=== PATIENT | female | born 2000 | race African-American/Black ===

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

== ENCOUNTER 2019-11-21 10:03 | Inpatient (IN) | payer MEDICAID ==
--- NOTE | 2019-11-21 10:48 | ER Document Report ---
Entered by HILTON BURNS SCRIBE 11/21/19 1027 Acting as scribe for:SOLA GUTIERREZ MD ED GI/ - General Chief Complaint: Vomiting Stated Complaint: VOMITING,DIARRHEA,MUSCLE PAIN Time Seen by Provider: 11/21/19 10:13 Mode of Arrival: Ambulatory Information source: Patient Notes: This 19-year-old female patient presents to the emergency department today with complaints of vomiting consistently for the last three weeks with an associated 30 pound weight loss. She reports that early on about 3 weeks ago she had diarrhea but she has not had any recently. She states that she also feels like she "cannot get enough air". Patient states her last menstrual period was earlier this month and she is G1, P1. TRAVEL OUTSIDE OF THE [place] IN LAST 30 DAYS: No - Related Data Allergies/Adverse Reactions: No Known Allergies Allergy (Verified 11/03/17 11:04) Past Medical History - General Information source: Patient - Social History Smoking Status: Never Smoker Cigarette use (# per day): No Frequency of alcohol use: None Drug Abuse: None Lives with: Family Family History: Reviewed & Not Pertinent - Medical History Medical History: Negative Surgical Hx: Negative Review of Systems - Review of Systems Constitutional: No symptoms reported EENT: No symptoms reported Cardiovascular: No symptoms reported Respiratory: No symptoms reported Gastrointestinal: See HPI, Nausea, Vomiting Genitourinary: No symptoms reported Female Genitourinary: No symptoms reported Musculoskeletal: No symptoms reported Skin: No symptoms reported Hematologic/Lymphatic: No symptoms reported Neurological/Psychological: No symptoms reported -: Yes All other systems reviewed and negative Physical Exam - Vital signs Vitals: Temp Pulse Resp BP Pulse Ox 98.5 F 162 H 30 H 129/75 H 98 11/21/19 10:20 11/21/19 10:20 11/21/19 10:20 11/21/19 10:20 11/21/19 10:20 - Notes Notes: Physical Exam: General: Alert, ketone odor on breath. HEENT: Normocephalic. Atraumatic. PERRL. Extraocular movements intact. Oropharynx clear. Neck: Supple. Non-tender. No thyroid enlargement. Respiratory: No respiratory distress. Clear and equal breath sounds bilaterally. Cardiovascular: Tachycardic at 160, regular rhythm. Abdominal: Normal Inspection. Non-tender. No distension. Normal Bowel Sounds. Back: No gross abnormalities. Extremities: Moves all four extremities. Upper extremities: Normal inspection. Normal ROM. Lower extremities: Normal inspection. No edema. Normal ROM. Neurological: Normal cognition. AAOx4. Normal speech. Psychological: Normal affect. Normal Mood. Skin: Warm. Dry. Normal color. Course - Re-evaluation Re-evalutation: 11/21/19 13:42 The patient was evaluated during the global COVID-19 pandemic and that diagnosis was suspected/considered upon their initial presentation. Their evaluation, treatment and testing was consistent with current guidelines for patients who present with complaints or symptoms that may be related to COVID-19. - Vital Signs Vital signs: Temp Pulse Resp BP Pulse Ox 98.4 F 98 16 115/62 100 11/23/19 11:42 11/23/19 14:00 11/23/19 11:42 11/23/19 11:42 11/23/19 11:42 - Laboratory Result Diagrams: 11/22/19 06:14 11/22/19 06:14 Laboratory results interpreted by me: 11/21/19 11/21/19 11/21/19 11:19 11:19 11:19 RDW 11.2 L VBG pH VBG pCO2 VBG HCO3 Sodium 134.1 L Carbon Dioxide 15 L Creatinine 0.41 L ALT 49 H TSH Free T4 Free T3 pg/mL Serum HCG, Qual POSITIVE H Beta HCG, Quant Urine Protein Urine Ketones Urine Blood Ur Leukocyte Esterase 11/21/19 11/21/19 11/21/19 11:19 11:19 11:19 RDW VBG pH VBG pCO2 VBG HCO3 Sodium Carbon Dioxide Creatinine ALT TSH < 0.01 L Free T4 5.17 H Free T3 pg/mL 14.00 H Serum HCG, Qual Beta HCG, Quant 880570.00 H Urine Protein 100 H Urine Ketones 80 H Urine Blood SMALL H Ur Leukocyte Esterase TRACE H 11/21/19 12:12 RDW VBG pH 7.28 L VBG pCO2 32.6 L VBG HCO3 15.1 L Sodium Carbon Dioxide Creatinine ALT TSH Free T4 Free T3 pg/mL Serum HCG, Qual Beta HCG, Quant Urine Protein Urine Ketones Urine Blood Ur Leukocyte Esterase - EKG Interpretation by Tx EKG shows normal: Sinus rhythm, [place], Intervals, QRS Complexes, ST-T Waves Rate: Tachycardia - 128 P Waves: LAE When compared to previous EKG there are: Previous EKG unavailable - Consults Nadya Bright [employer] Time consulted: 13:20 Consulted provider: will come to ER Critical Care Note - Critical Care Note Total time excluding time spent on procedures (mins): 30 Comments: At least 30 minutes spent evaluating the patient reviewing lab work and formulating a diagnosis and plan, then time spent explaining this to the patient and discussing the patient with the hospitalist service to get the admission to the hospital done. Discharge - Discharge Clinical Impression: Hyperthyroidism complicating in first trimester, Hyperemesis gravidarum, Weight loss, abnormal, Metabolic acidosis, Tachycardia Condition: Stable Disposition: ADMITTED INPATIENT Admitting Provider: Kaya (Hospitalist) - Nadya Bright will be seeing the patient and writing orders. Unit Admitted: Telemetry I personally performed the services described in the documentation, reviewed and edited the documentation which was dictated to the scribe in my presence, and it accurately records my words and actions.
[2019-11-21] MEDS ORDERED: RINGERS SOLUTION,LACTATED 1,000 ML IV ONE (11:07)
[2019-11-21 11:40] LABS: ABSOLUTE LYMPHOCYTES (AUTO) 1.1 10^3/uL (0.5-4.7); ABSOLUTE MONOCYTES (AUTO) 0.4 10^3/uL (0.1-1.4); ABSOLUTE NEUT (AUTO) 3.9 10^3/uL (1.7-8.2); BASOPHILS % (AUTO) 0.7 % (0-2); EOSINOPHILS % (AUTO) 0.2 % (0-6); HEMOGLOBIN 14.9 g/dL (12.0-15.5); LYMPHOCYTES % (AUTO) 20.1 % (13-45); MEAN CORPUSCULAR HEMOGLOBIN 28.4 pg (27.0-33.4); MEAN CORPUSCULAR HGB CONC 34.7 g/dL (32.0-36.0); MEAN CORPUSCULAR VOLUME 82 fl (80-97); MONOCYTES % (AUTO) 7.5 % (3-13); PLATELET COUNT 259 10^3/uL (150-450); RED BLOOD COUNT 5.26 10^6/uL (3.72-5.28); RED CELL DISTRIBUTION WIDTH 11.2 % (11.5-14.0); SEGMENTED NEUTROPHILS % (AUTO) 71.5 % (42-78); TOTAL CELLS COUNTED % (AUTO) 100 %; WHITE BLOOD COUNT 5.4 10^3/uL (4.0-10.5)
[2019-11-21 11:51] LABS: APPEARANCE,URINE SLIGHTLY-CLOUDY; BILIRUBIN,URINE NEGATIVE (NEGATIVE); COLOR,URINE YELLOW; GLUCOSE, URINE NEGATIVE (NEGATIVE); KETONES,URINE 80 mg/dL (NEGATIVE); LEUKOCYTE ESTERASE,URINE TRACE (NEGATIVE); NITRITE,URINE NEGATIVE (NEGATIVE); PROTEIN,URINE 100 mg/dL (NEGATIVE); URINE SPECIFIC GRAVITY 1.024; UROBILINOGEN,URINE NEGATIVE mg/dL (<2.0)
[2019-11-21 11:58] LABS: ALBUMIN 3.9 g/dL (3.5-5.0); ALKALINE PHOSPHATASE 77 U/L (38-126); ANION GAP 15 (5-19); ASPARTATE AMINO TRANSFERASE 35 U/L (14-36); BILIRUBIN,DIRECT 0.2 mg/dL (0.0-0.4); BILIRUBIN,TOTAL 1.3 mg/dL (0.2-1.3); BLOOD UREA NITROGEN 11 mg/dL (7-20); CALCIUM 10.2 mg/dL (8.4-10.2); CARBON DIOXIDE 15 mmol/L (22-30); CHLORIDE 104 mmol/L (98-107); CREATINE KINASE 35 U/L (30-135); GLUCOSE 95 mg/dL (75-110); POTASSIUM 4.4 mmol/L (3.6-5.0); TOTAL PROTEIN 6.7 g/dL (6.3-8.2)
[2019-11-21 12:14] LABS: FREE T4 (FREE THYROXINE) 5.17 ng/dL (0.78-2.19)
[2019-11-21 12:31] LABS: THYROID STIMULATING HORMONE < 0.01 uIU/mL (0.47-4.68)
[2019-11-21 12:40] LABS: VENOUS BLOOD BASE EXCESS -10.3 mmol/L; VENOUS BLOOD HCO3 15.1 mmol/L (20-32); VENOUS BLOOD PCO2 32.6 mmHg (35-63); VENOUS BLOOD PH 7.28 (7.30-7.42)
--- NOTE | 2019-11-21 13:07 | EKG REPORT ---
SEVERITY:- ABNORMAL ECG - SINUS TACHYCARDIA GAEL, CONSIDER BIATRIAL ABNORMALITIES : Confirmed by: Jaxon Salgado MD 21-Nov-2019 13:07:01
[2019-11-21] MEDS ORDERED: METOCLOPRAMIDE HCL INJ/PF 10 MG/2 ML SDV IV ONE (13:30)
[2019-11-21] MEDS ORDERED: ACETAMINOPHEN 325 MG TABLET PO PRN (15:28)
[2019-11-21] MEDS ORDERED: PROMETHAZINE HCL 25 MG TABLET PO PRN (15:50)
[2019-11-21] MEDS ORDERED: PROMETHAZINE HCL 25 MG TABLET PO ONE (16:30)
[2019-11-21] MEDS ORDERED: PROPRANOLOL HCL 20 MG TABLET PO ONE (16:45)
--- NOTE | 2019-11-21 17:39 | PDOC H&P ---
History of Present Illness Admission Date/PCP: 11/21/19 13:56 [facility] Patient complains of: Vomiting, 30lbs weight loss History of Present Illness: ISAIAH POWER is a 19 year old female who presents to the emergency department with concerns regarding 3-week history of nausea, vomiting, and fatigue with 30lb weight loss. Reports associated palpitations, shortness of breath, heat intolerance, headache, diarrhea and tingling in extremities. She reports on average 7 episodes of emesis a day. LNMP earlier this month, unable to report exact date, with positive urine test since. She has been unable to eat for the past 2 days secondary to frequency of vomiting, which prompted her to seek evaluation in the emergency department today. On evaluation in the emergency department she was found to be tachycardic, otherwise afebrile and hemodynamically stable. Thyroid studies consistent with hyperthyroidism (TSH <0.01, Free T4 5.17, Free T3 14). Serum qualitative hCG was positive with quantitative beta-hCG 160,000. On chemistiries she is hyponatremic (135.1) with non-anion gap metabolic acidosis. Hematuria, ketones, polyuria, and trace amounts of leukocyte esterase on UA. EKG showed sinus tach rate in the 140s. IVF were initiated and was subsequentially reffered to the hospitalist service for further evaluation and treatment. Past Medical History Medical History: None Endocrine Medical History: Reports: None Past Surgical History Past Surgical History: Reports: None Social History Information Source: Patient Lives with: Family Smoking Status: Never Smoker Electronic Cigarette use?: No Frequency of Alcohol Use: None Hx Recreational Drug Use: No Hx Prescription Drug Abuse: No - Advance Directive Resuscitation Status: Full Code Family History Family History: denies: Thyroid Disfunction Parental Family History Reviewed: Yes Children Family History Reviewed: Yes Sibling(s) Family History Reviewed.: Yes Medication/Allergy Home Medications: No Home Medications 11/21/19 Allergies/Adverse Reactions: No Known Allergies Allergy (Verified 11/03/17 11:04) Review of Systems Constitutional: PRESENT: anorexia, fatigue, headache(s), night sweats, weight loss - 30lbs in 3 weeks. ABSENT: chills, fever(s) Eyes: ABSENT: visual disturbances Nose, Mouth, and Throat: PRESENT: headache(s). ABSENT: sore throat, vertigo Cardiovascular: PRESENT: palpitations. ABSENT: chest pain Respiratory: PRESENT: cough, dyspnea. ABSENT: hemoptysis Gastrointestinal: PRESENT: abdominal pain, diarrhea, nausea, vomiting. ABSENT: constipation, hematemesis Genitourinary: ABSENT: difficulty urinating, dysuria, hematuria Musculoskeletal: ABSENT: back pain, deformity Integumentary: PRESENT: diaphoresis. ABSENT: pruritus, rash Neurological: PRESENT: paresthesias Psychiatric: PRESENT: anxiety. ABSENT: depression Endocrine: PRESENT: flushing, heat intolerance. ABSENT: cold intolerance, polydipsia, polyphagia, polyuria Hematologic/Lymphatic: ABSENT: lymphadenopathy Physical Exam Vital Signs: Temp Pulse Resp BP Pulse Ox 98.5 F 162 H 19 116/71 99 11/21/19 10:20 11/21/19 10:20 11/21/19 14:01 11/21/19 14:01 11/21/19 13:01 Intake & Output 11/20/19 11/21/19 11/22/19 06:59 06:59 06:59 Intake Total 1000 Balance 1000 Weight 46.6 kg General appearance: PRESENT: cooperative, thin Head exam: PRESENT: atraumatic, normocephalic Eye exam: PRESENT: conjunctiva pink, EOMI, PERRLA. ABSENT: scleral icterus Ear exam: PRESENT: normal external ear exam. ABSENT: bleeding, drainage Mouth exam: PRESENT: dry mucosa, tongue midline Neck exam: PRESENT: full ROM. ABSENT: lymphadenopathy, tenderness, thyromegaly Respiratory exam: PRESENT: clear to auscultation breanna, symmetrical, unlabored. ABSENT: tachypnea Cardiovascular exam: PRESENT: tachycardia - 120s, other - Regular rhythm GI/Abdominal exam: PRESENT: normal bowel sounds, soft, tenderness - diffuse. ABSENT: ascites, distended, firm Rectal exam: PRESENT: deferred Extremities exam: PRESENT: full ROM. ABSENT: pedal edema, tenderness Musculoskeletal exam: PRESENT: ambulatory, full ROM. ABSENT: deformity, dislocation Neurological exam: PRESENT: alert, awake, oriented to person, oriented to place, oriented to time, oriented to situation, CN II-XII grossly intact Psychiatric exam: PRESENT: appropriate affect, normal mood Skin exam: PRESENT: dry, intact, normal color, warm. ABSENT: rash Results Laboratory Results: 11/21/19 11:19 11/21/19 11:19 11/21/19 11/21/19 11/21/19 11:19 11:19 11:19 WBC 5.4 RBC 5.26 Hgb 14.9 Hct 43.0 MCV 82 MCH 28.4 MCHC 34.7 RDW 11.2 L Plt Count 259 Seg Neutrophils % 71.5 VBG pH VBG pCO2 VBG HCO3 VBG Base Excess Sodium 134.1 L Potassium 4.4 Chloride 104 Carbon Dioxide 15 L Anion Gap 15 BUN 11 Creatinine 0.41 L Est GFR ( Amer) > 60 Glucose 95 Calcium 10.2 Magnesium 1.7 Total Bilirubin 1.3 AST 35 Alkaline Phosphatase 77 Total Protein 6.7 Albumin 3.9 TSH Free T4 Free T3 pg/mL Serum HCG, Qual POSITIVE H Urine Color Urine Appearance Urine pH Ur Specific [place] Urine Protein Urine Glucose (UA) Urine Ketones Urine Blood Urine Nitrite Ur Leukocyte Esterase Urine WBC (Auto) Urine RBC (Auto) 11/21/19 11/21/19 11/21/19 11:19 11:19 12:12 WBC RBC Hgb Hct MCV MCH MCHC RDW Plt Count Seg Neutrophils % VBG pH 7.28 L VBG pCO2 32.6 L VBG HCO3 15.1 L VBG Base Excess -10.3 Sodium Potassium Chloride Carbon Dioxide Anion Gap BUN Creatinine Est GFR ( Amer) Glucose Calcium Magnesium Total Bilirubin AST Alkaline Phosphatase Total Protein Albumin TSH < 0.01 L Free T4 5.17 H Free T3 pg/mL 14.00 H Serum HCG, Qual Urine Color YELLOW Urine Appearance SLIGHTLY-CLOUDY Urine pH 5.0 Ur Specific [place] 1.024 Urine Protein 100 H Urine Glucose (UA) NEGATIVE Urine Ketones 80 H Urine Blood SMALL H Urine Nitrite NEGATIVE Ur Leukocyte Esterase TRACE H Urine WBC (Auto) 9 Urine RBC (Auto) 1 11/21/19 11/21/19 11:19 11:19 Creatine Kinase 35 Troponin I < 0.012 Assessment and Plan - Diagnosis (1) Hyperthyroidism complicating in first trimester Is this a current diagnosis for this admission?: Yes Plan: No prior history of hyperthyroidism. TSH undetectable, Free T4: 5.17, Free T3: 14.00 Quantitative bHCG 160,000 indicative of first trimester . -TVUS pending. She is hemodynamically stable. Monitor vital signs closely. Electrical Maintenance Man Dr. Hall, with [facility] consulted on treatment plan. Recommended the following treatment and evaluation: -Propanolol 20mg TID -PTU 50mg TID -Thyroid stimulating immunoglobulin ordered -Cortisol a.m. ordered -Recommend repeat total T3 and total T4 in x1 week. -Recommend follow up at [facility] outpatient within 1 week of d/c from hospital. Thyroid ultrasound ordered, results pending. IVF initiated. Continuous technical operations manager vitals closely (2) Nausea and vomiting during prior to 22 weeks gestation Is this a current diagnosis for this admission?: Yes Plan: Suspect secondary to new diagnosis of hyperthyroidism vs less likely hyperemesis gravidarum. Symptoms and lab values supportive of hyperthyroidism. Initiate Promethazine for management of symptoms. Treatment otherwise as stated above, 1. Consider further work up if no resolution of symptoms with treatment plan. (3) Weight loss, abnormal Is this a current diagnosis for this admission?: Yes Plan: Suspect secondary to hyperthyroidism vs less likely hyperemesis gravidarum. Treatment as stated above, 1 and 2. (4) Tachycardia Is this a current diagnosis for this admission?: Yes Plan: HR in the 120s on evaluation with spike into 170s when ambulation. Treatment as discussed in 1. (5) Dehydration during Is this a current diagnosis for this admission?: Yes Plan: Non-anion gap metabolic acidosis with ketones on UA with significant 3 week history of multiple episodes of emesis daily. Rehydration with LR initiated. Repeat UA in the a.m. following rehydration. Encourage oral intake as tolerated. Monitor vital signs. (6) Metabolic acidosis Is this a current diagnosis for this admission?: Yes Plan: Non-anion gap metabolic acidosis. Suspect secondary to dehydration. Suspect improvment with rehydration. Treatment as stated above, 5. (7) Hematuria Qualifiers: Hematuria type: benign essential microscopic Qualified Code(s): R31.1 - Benign essential microscopic hematuria Is this a current diagnosis for this admission?: Yes Plan: Small amount of blood found on UA with trace amount leukocyte esterase and bacteria. UA consistent with dehydration > cystitis. VS stable, denies symptoms. Repeat UA in the a.m. Urine culture ordered. Consider outpatient treatment pending results. - Plan Summary Summary: 11/22/2019 Hypothyroidism-PTU and propranolol started. I change the 3 times daily schedule to every 8 hours for more even distribution. A.m. cortisol is normal. Will refer to outpatient endocrinology of [facility] approximately 1 week after discharge. Patient is still not feeling too well and we will continue IV fluids and allow a second day of medication administration and reassess tomorrow Nausea and vomiting-we will continue IV fluids. Using promethazine. I reviewed the literature. Meclizine is an alternative. They also suggested trying pyridoxine 50 mg every 8 hours. We will continue to monitor. Weight loss secondary to hypothyroidism. Should correct as patient becomes euthyroid. Tachycardia-due to hyperthyroidism. Slowly improving. Dehydration-continue IV fluids [place]-should resolve with fluids Hematuria-continue to monitor. - Time Time Spent with patient: 35 or more minutes Medications reviewed and adjusted accordingly: Yes Anticipated Discharge Disposition: Home, Self Care Anticipated Discharge Timeframe: within 48 hours
--- NOTE | 2019-11-21 17:41 | RADIOLOGY REPORT (SQ) ---
EXAM DESCRIPTION: U/S 1TRIMESTER/1GEST W/DOPPLER IMAGES COMPLETED DATE/TIME: 11/21/2019 4:53 pm REASON FOR STUDY: IUP COMPARISON: None. TECHNIQUE: Transabdominal static and realtime grayscale images acquired of the pelvis. Additional se lected spectral and color Doppler images recorded. All images stored on PACs. bHC,000 CLINICAL DATES: Unknown LIMITATIONS: None. FINDINGS: FETUS: Single Living intrauterine . ULTRASOUND EGA: 8 weeks 6 days ULTRASOUND MALLY: 06/26/2020 EFW: Not applicable less than 20 weeks. CRL: 2.2 cm FHR: 169 beats per minute. SURVEY: Too early to assess. AMNIOTIC FLUID: Adequate amount. PLACENTA: Not yet developed due to early gestation. SUBCHORIONIC BLEED: Yes SIZE OF BLEED: 1.3 x 1.3 x 1.1 cm. UTERUS: No masses. No anomalies. CERVICAL LENGTH: 2.3 cm. Closed. RIGHT ADNEXA: Normal ovary with normal vascular flow. 2.9 x 2.3 x 1.7 cm. No adnexal free fluid. No adnexal masses. LEFT ADNEXA: Normal ovary with normal vascular flow. 3 x 2.3 x 2.7 cm. Possible corpus luteum measu ring 2.7 x 1.9 x 1.5 cm. No adnexal free fluid. No adnexal masses. FREE FLUID: None. OTHER: No other significant finding. IMPRESSION: LIVING INTRAUTERINE . EGA 8 weeks 6 days. Trimester of : First trimester - 0 to 13 weeks. TECHNICAL DOCUMENTATION: JOB ID: [id number] 2010 [employer]- All Rights Reserved rev Reading location - IP/workstation name: [email or web address]
[2019-11-21] MEDS ORDERED: PROPYLTHIOURACIL 50 MG TABLET PO SCH (18:00)
--- NOTE | 2019-11-21 18:02 | RADIOLOGY REPORT (SQ) ---
EXAM DESCRIPTION: U/S THYROID/SFT TISS HD NECK IMAGES COMPLETED DATE/TIME: 11/21/2019 4:53 pm REASON FOR STUDY: Hyperthyroidism COMPARISON: None. TECHNIQUE: Dynamic and static negron-scale images acquired of the thyroid gland. Selected additional c olor/power Doppler images recorded. All images stored to PACS. LIMITATIONS: None. FINDINGS: RIGHT LOBE: Normal size, 4.5 cm. Heterogeneous echotexture. No cystic or solid masses. LEFT LOBE: Normal size, 4 cm. Heterogeneous echotexture. No cystic or solid masses. ISTHMUS: Normal size, 3 mm. Homogeneous echotexture. No cystic or solid masses. OTHER: Increased vascularity bilaterally. IMPRESSION: Normal size, heterogeneous thyroid with increased vascularity. Possible thyroiditis. TECHNICAL DOCUMENTATION: JOB ID: [id number] 2010 [employer]- All Rights Reserved Reading location - IP/workstation name: [email or web address]
[2019-11-21] MEDS: RINGERS SOLUTION,LACTATED 1,000 ML IV PRN (18:04)
[2019-11-21] MEDS: PROPYLTHIOURACIL 50 MG TABLET PO SCH (18:05)
[2019-11-21] MEDS: PROPRANOLOL HCL 20 MG TABLET PO SCH (18:11)
[2019-11-21] MEDS ORDERED: PROPRANOLOL HCL 20 MG TABLET PO SCH (22:00)
[2019-11-22] MEDS: RINGERS SOLUTION,LACTATED 1,000 ML IV PRN ×2 (05:05→13:42)
[2019-11-22 06:52] LABS: ABSOLUTE LYMPHOCYTES (AUTO) 1.3 10^3/uL (0.5-4.7); ABSOLUTE MONOCYTES (AUTO) 0.4 10^3/uL (0.1-1.4); BASOPHILS % (AUTO) 0.8 % (0-2); EOSINOPHILS % (AUTO) 0.6 % (0-6); LYMPHOCYTES % (AUTO) 26.5 % (13-45); MEAN CORPUSCULAR HEMOGLOBIN 28.7 pg (27.0-33.4); MEAN CORPUSCULAR HGB CONC 35.3 g/dL (32.0-36.0); MEAN CORPUSCULAR VOLUME 81 fl (80-97); MONOCYTES % (AUTO) 8.5 % (3-13); PLATELET COUNT 210 10^3/uL (150-450); RED BLOOD COUNT 4.31 10^6/uL (3.72-5.28); RED CELL DISTRIBUTION WIDTH 11.6 % (11.5-14.0); SEGMENTED NEUTROPHILS % (AUTO) 63.6 % (42-78); TOTAL CELLS COUNTED % (AUTO) 100 %; WHITE BLOOD COUNT 4.8 10^3/uL (4.0-10.5)
[2019-11-22 06:57] LABS: HEMOGLOBIN 12.3 g/dL (12.0-15.5)
[2019-11-22 07:16] LABS: ANION GAP 12 (5-19); BLOOD UREA NITROGEN 9 mg/dL (7-20); CALCIUM 9.4 mg/dL (8.4-10.2); CARBON DIOXIDE 16 mmol/L (22-30); CHLORIDE 106 mmol/L (98-107); GLUCOSE 70 mg/dL (75-110); POTASSIUM 3.8 mmol/L (3.6-5.0)
[2019-11-22 07:25] LABS: APPEARANCE,URINE SLIGHTLY-CLOUDY; BILIRUBIN,URINE NEGATIVE (NEGATIVE); COLOR,URINE YELLOW; GLUCOSE, URINE NEGATIVE (NEGATIVE); KETONES,URINE 80 mg/dL (NEGATIVE); LEUKOCYTE ESTERASE,URINE SMALL (NEGATIVE); NITRITE,URINE NEGATIVE (NEGATIVE); PROTEIN,URINE 30 mg/dL (NEGATIVE); URINE SPECIFIC GRAVITY 1.019; UROBILINOGEN,URINE NEGATIVE mg/dL (<2.0)
[2019-11-22] MEDS: PROPRANOLOL HCL 20 MG TABLET PO SCH ×3 (09:09→22:20)
[2019-11-22] MEDS: PROPYLTHIOURACIL 50 MG TABLET PO SCH ×3 (09:09→22:21)
[2019-11-22] MEDS: PROMETHAZINE HCL 25 MG TABLET PO PRN ×2 (09:11→19:43)
--- NOTE | 2019-11-22 12:12 | PDOC PROGRESS REPORT ---
Subjective Progress Note for:: 11/22/19 Subjective:: The patient still reports feeling nauseated. She does admit that the tachycardia/palpitations have improved. She still has poor appetite. She denies any abdominal pain. Reason For Visit: HYPERTHYROIDISM, FIRST TRIMESTER Physical Exam Vital Signs: Temp Pulse Resp BP Pulse Ox 98.0 F 115 H 16 111/68 99 11/22/19 10:00 11/22/19 07:20 11/22/19 07:20 11/22/19 07:20 11/22/19 07:20 Intake & Output 11/21/19 11/22/19 11/23/19 06:59 06:59 06:59 Intake Total 1999 50 Balance 1999 50 Weight 47.8 kg 48.1 kg General appearance: PRESENT: cooperative, mild distress, thin, well-developed Head exam: PRESENT: atraumatic, normocephalic Eye exam: PRESENT: conjunctiva pink, other - No exophthalmos. ABSENT: scleral icterus Ear exam: PRESENT: normal external ear exam. ABSENT: bleeding, drainage Mouth exam: PRESENT: moist, tongue midline Respiratory exam: PRESENT: clear to auscultation breanna, symmetrical, unlabored. ABSENT: accessory muscle use, prolonged expiratory phas, rales, rhonchi, tachypnea, wheezes Cardiovascular exam: PRESENT: RRR, +S1, +S2. ABSENT: bradycardia, diastolic murmur, irregular rhythm, systolic murmur, tachycardia GI/Abdominal exam: PRESENT: normal bowel sounds, soft. ABSENT: distended, guarding, tenderness Rectal exam: PRESENT: deferred Gentrourinary exam: ABSENT: indwelling catheter Extremities exam: ABSENT: calf tenderness, pedal edema Musculoskeletal exam: PRESENT: ambulatory, normal inspection. ABSENT: deformity, dislocation Neurological exam: PRESENT: alert, awake, oriented to person, oriented to place, oriented to time, oriented to situation, CN II-XII grossly intact. ABSENT: altered Psychiatric exam: PRESENT: flat affect. ABSENT: agitated, anxious Focused psych exam: ABSENT: delusional, paranoid, restlessness Skin exam: PRESENT: dry, normal color, warm. ABSENT: rash Results Laboratory Results: 11/22/19 06:14 11/22/19 06:14 11/21/19 11/21/19 11/22/19 11:19 12:12 05:00 WBC RBC Hgb Hct MCV MCH MCHC RDW Plt Count Seg Neutrophils % VBG pH 7.28 L VBG pCO2 32.6 L VBG HCO3 15.1 L VBG Base Excess -10.3 Sodium Potassium Chloride Carbon Dioxide Anion Gap BUN Creatinine Est GFR ( Amer) Glucose Calcium Magnesium TSH < 0.01 L Free T4 5.17 H Free T3 pg/mL 14.00 H Urine Color YELLOW Urine Appearance SLIGHTLY-CLOUDY Urine pH 5.0 Ur Specific [place] 1.019 Urine Protein 30 H Urine Glucose (UA) NEGATIVE Urine Ketones 80 H Urine Blood NEGATIVE Urine Nitrite NEGATIVE Ur Leukocyte Esterase SMALL H Urine WBC (Auto) 21 Urine RBC (Auto) 2 11/22/19 11/22/19 06:14 06:14 WBC 4.8 RBC 4.31 Hgb 12.3 D Hct 35.0 L MCV 81 MCH 28.7 MCHC 35.3 RDW 11.6 Plt Count 210 Seg Neutrophils % 63.6 VBG pH VBG pCO2 VBG HCO3 VBG Base Excess Sodium 133.8 L Potassium 3.8 Chloride 106 Carbon Dioxide 16 L Anion Gap 12 BUN 9 Creatinine 0.38 L Est GFR ( Amer) > 60 Glucose 70 L Calcium 9.4 Magnesium 1.5 L TSH Free T4 Free T3 pg/mL Urine Color Urine Appearance Urine pH Ur Specific [place] Urine Protein Urine Glucose (UA) Urine Ketones Urine Blood Urine Nitrite Ur Leukocyte Esterase Urine WBC (Auto) Urine RBC (Auto) 11/21/19 11/21/19 11:19 11:19 Creatine Kinase 35 Troponin I < 0.012 Impressions: Obstetrics Ultrasound 11/21/19 00:00 IMPRESSION: LIVING INTRAUTERINE . EGA 8 weeks 6 days. Trimester of : First trimester - 0 to 13 weeks. Thyroid Ultrasound 11/21/19 00:00 IMPRESSION: Normal size, heterogeneous thyroid with increased vascularity. Possible thyroiditis. Assessment and Plan - Diagnosis (1) Hyperthyroidism complicating in first trimester Is this a current diagnosis for this admission?: Yes (2) Nausea and vomiting during prior to 22 weeks gestation Is this a current diagnosis for this admission?: Yes (3) Weight loss, abnormal Is this a current diagnosis for this admission?: Yes (4) Tachycardia Is this a current diagnosis for this admission?: Yes (5) Dehydration during Is this a current diagnosis for this admission?: Yes (6) Metabolic acidosis Is this a current diagnosis for this admission?: Yes (7) Hematuria Qualifiers: Hematuria type: benign essential microscopic Qualified Code(s): R31.1 - Benign essential microscopic hematuria Is this a current diagnosis for this admission?: Yes - Plan Summary Summary: 11/22/2019 Hypothyroidism-PTU and propranolol started. I change the 3 times daily schedule to every 8 hours for more even distribution. A.m. cortisol is normal. Will refer to outpatient endocrinology of [facility] approximately 1 week after discharge. Patient is still not feeling too well and we will continue IV fluids and allow a second day of medication administration and reassess tomorrow Nausea and vomiting-we will continue IV fluids. Using promethazine. I reviewed the literature. Meclizine is an alternative. They also suggested trying pyridoxine 50 mg every 8 hours. We will continue to monitor. Weight loss secondary to hypothyroidism. Should correct as patient becomes euthyroid. Tachycardia-due to hyperthyroidism. Slowly improving. Dehydration-continue IV fluids Nagma-should resolve with fluids Hematuria-continue to monitor. - Time Time Spent with patient: 15-24 minutes Medications reviewed and adjusted accordingly: Yes Anticipated Discharge Disposition: Home, Self Care Anticipated Discharge Timeframe: within 48 hours
[2019-11-22] MEDS: PYRIDOXINE HCL 50 MG TABLET PO SCH ×2 (14:22→22:20)
[2019-11-23] MEDS: PROPRANOLOL HCL 20 MG TABLET PO SCH ×3 (05:50→17:30)
[2019-11-23] MEDS: RINGERS SOLUTION,LACTATED 1,000 ML IV PRN ×2 (05:51→17:31)
[2019-11-23] MEDS: PROPYLTHIOURACIL 50 MG TABLET PO SCH ×3 (05:51→21:52)
[2019-11-23] MEDS: PYRIDOXINE HCL 50 MG TABLET PO SCH ×3 (05:51→21:52)
--- NOTE | 2019-11-23 10:55 | PDOC PROGRESS REPORT ---
Subjective Progress Note for:: 11/23/19 Subjective:: Patient was seen on morning rounds. She is in bed resting. She continues to experience palpitations and shortness of breath on exertion but otherwise denies at rest. Her biggest concern today is nausea which is constant without improvement with medications. Nausea is so severe that she is unable to eat. She reports 4 episodes of emesis per day with 2 episodes of diarrhea. She is producing urine and denies any urinary symptoms at this time. Otherwise denies change in vision, headache, numbness tingling, or lower extremity swelling. Discussed case with patient's nurse. Patient has been afebrile but continues to be tachycardic, with notable increase in heart rate on exertion. Patient's biggest complaint to nurse has been the nausea. No other concerns at this time. Reason For Visit: HYPERTHYROIDISM, FIRST TRIMESTER Physical Exam Vital Signs: Temp Pulse Resp BP Pulse Ox 98.5 F 97 17 113/65 100 11/23/19 07:15 11/23/19 07:15 11/23/19 07:15 11/23/19 07:15 11/23/19 07:15 Intake & Output 11/22/19 11/23/19 11/24/19 06:59 06:59 06:59 Intake Total 1999 2275 120 Balance 1999 2275 120 Weight 47.8 kg 48.1 kg 47.5 kg General appearance: PRESENT: no acute distress, cooperative, thin Head exam: PRESENT: atraumatic, normocephalic Eye exam: PRESENT: EOMI, PERRLA. ABSENT: nystagmus, periorbital swelling, scleral icterus, other - exophthalmos. Ear exam: PRESENT: normal external ear exam. ABSENT: bleeding, drainage Mouth exam: PRESENT: moist, tongue midline Neck exam: PRESENT: full ROM. ABSENT: lymphadenopathy, tenderness, thyromegaly Respiratory exam: PRESENT: clear to auscultation breanna, symmetrical, unlabored. ABSENT: tachypnea, wheezes Cardiovascular exam: PRESENT: +S1, +S2, tachycardia. ABSENT: diastolic murmur, systolic murmur GI/Abdominal exam: PRESENT: normal bowel sounds, soft, tenderness - Diffuse tenderness on palpation. ABSENT: ascites, distended, firm, guarding Rectal exam: PRESENT: deferred Extremities exam: PRESENT: full ROM. ABSENT: clubbing, pedal edema, tenderness Musculoskeletal exam: PRESENT: ambulatory, full ROM. ABSENT: deformity, dislocation Neurological exam: PRESENT: alert, awake, oriented to person, oriented to place, oriented to time. ABSENT: altered, motor sensory deficit Psychiatric exam: PRESENT: appropriate affect, normal mood Skin exam: PRESENT: dry, intact, warm. ABSENT: rash Results Laboratory Results: 11/22/19 06:14 11/22/19 06:14 11/21/19 11/21/19 11:19 11:19 Creatine Kinase 35 Troponin I < 0.012 Impressions: Obstetrics Ultrasound 11/21/19 00:00 IMPRESSION: LIVING INTRAUTERINE . EGA 8 weeks 6 days. Trimester of : First trimester - 0 to 13 weeks. Thyroid Ultrasound 11/21/19 00:00 IMPRESSION: Normal size, heterogeneous thyroid with increased vascularity. Possible thyroiditis. Assessment and Plan - Diagnosis (1) Hyperthyroidism complicating in first trimester Is this a current diagnosis for this admission?: Yes (2) Nausea and vomiting during prior to 22 weeks gestation Is this a current diagnosis for this admission?: Yes (3) Weight loss, abnormal Is this a current diagnosis for this admission?: Yes (4) Tachycardia Is this a current diagnosis for this admission?: Yes (5) Dehydration during Is this a current diagnosis for this admission?: Yes (6) Metabolic acidosis Is this a current diagnosis for this admission?: Yes (7) Hematuria Qualifiers: Hematuria type: benign essential microscopic Qualified Code(s): R31.1 - Benign essential microscopic hematuria Is this a current diagnosis for this admission?: Yes - Plan Summary Summary: 11/22/2019 Hyperthyroidism-PTU and propranolol started. I change the 3 times daily schedule to every 8 hours for more even distribution. A.m. cortisol is normal. Will refer to outpatient endocrinology of [facility] approximately 1 week after discharge. Patient is still not feeling too well and we will continue IV fluids and allow a second day of medication administration and reassess tomorrow Nausea and vomiting-we will continue IV fluids. Using promethazine. I reviewed the literature. Meclizine is an alternative. They also suggested trying pyridoxine 50 mg every 8 hours. We will continue to monitor. Weight loss secondary to hyperthyroidism. Should correct as patient becomes euthyroid. Tachycardia-due to hyperthyroidism. Slowly improving. Dehydration-continue IV fluids Nagma-should resolve with fluids Hematuria-continue to monitor. 11/23/2019 Hyperthyroidism: current regimen includes PTU and propranolol. -Remains tachycardic with heart rate in the low 100s. Increase propranolol to 20 mg every 6 hours -Continue with PTU at current dosage. -Continue IV fluids. -TSH immunoglobulin pending -Follow-up outpatient endocrinology at invited in approximately 1 week after discharge. Nausea and vomiting: Current treatment regimen includes promethazine. -Continues to complain of nausea and vomiting, with no improvement. -Discussed case with Dr. Juana Ross, [facility], recommends the following changes to treatment regimen: -Promethazine as needed -Scopolamine patch -Outpatient therapy recommended includes: vitamin B6 TID and Unisom in the evening Weight loss: secondary to hyperthyroidism -Suspect will correct when patient becomes euthyroid. Tachycardia: Due to hyperthyroidism. -Increase propranolol to 20 mg every 6 hours. -Continue to monitor. Dehydration: Continue with IV fluids. Suspect will improve with fluids and control of nausea. Nagma: Should improve with IV fluids. Hematuria: Urine culture from [id number] normal urogenital braden, no signs of infection at this time. Treatment unnecessary at this time. - Time Time Spent with patient: 25-34 minutes Medications reviewed and adjusted accordingly: Yes Anticipated Discharge Disposition: Home, Self Care Anticipated Discharge Timeframe: within 24 hours
[2019-11-23] MEDS ORDERED: SCOPOLAMINE HYDROBROMIDE 1.5 MG PATCH.TD72 TD ONE (12:00)
[2019-11-24] MEDS: PROPRANOLOL HCL 20 MG TABLET PO SCH ×4 (00:23→18:01)
[2019-11-24] MEDS: PROPYLTHIOURACIL 50 MG TABLET PO SCH ×2 (06:40→13:12)
[2019-11-24] MEDS: PYRIDOXINE HCL 50 MG TABLET PO SCH ×2 (06:40→13:12)
[2019-11-24] MEDS ORDERED: MAGNESIUM SULFATE INJ 8 MEQ/2 ML IV ONE (09:18)
[2019-11-24] MEDS ORDERED: PROMETHAZINE HCL 25 MG SUPP.RECT PR ONE (10:00)
[2019-11-24] MEDS: MAGNESIUM SULFATE 1 GM/D5W 100 ML IV SCH ×2 (10:46→12:37)
--- NOTE | 2019-11-24 18:21 | PDOC DISCHARGE SUMMARY ---
Impression - Admit/DC Date/PCP Admission Date/Primary Care Provider: 11/21/19 15:25 JODEE DEVIN GUTIÉRREZP-C Discharge Date: 11/24/19 - Discharge Diagnosis (1) Hyperthyroidism complicating in first trimester Is this a current diagnosis for this admission?: Yes (2) Nausea and vomiting during prior to 22 weeks gestation Is this a current diagnosis for this admission?: Yes (3) Weight loss, abnormal Is this a current diagnosis for this admission?: Yes (4) Tachycardia Is this a current diagnosis for this admission?: Yes (5) Dehydration during Is this a current diagnosis for this admission?: Yes (6) Metabolic acidosis Is this a current diagnosis for this admission?: Yes (7) Hematuria Is this a current diagnosis for this admission?: Yes - Assessment Summary: Discussed patient's hospital course, diagnosis, treatment plan, and follow-up appointments with the patient in detail. She is agreeing and understanding to plan of treatment. Hyperthyroidism in first trimester : Symptoms progressively improved over course of hospitalization. Patient is stable at this time and ready for discharge from hospital service. -Rx for Propylthiouracin 50mg PO Q8 hours. -Rx for Propanolol 20mg PO Q 6 hours. -TSH immunoglobulin 8.03, TSH undetectable, FT3 14, FT4 5.17 -Follow-up outpatient endocrinology at [facility] in approximately 1 week after discharge for repeat labs, monitoring, and medication adjustment. First trimester : Quantitative beta HCG 160,010 with IUP EGA 8 weeks as confirmed on pelvic US from 11/21/2019. -Educated patient on vitamins. -She is to follow up with [facility] within 2 weeks of discharge. Nausea and vomiting: Continues to experience nausea though this has significantly improved from initial visit. She is able to tolerate PO at this time. Patient's nausea and vomiting is consistent with first trimester preg jonathan. Educated patient on small, frequent, bland meals and encouraged her to avoid completely empty stomach. Patient is aware and understanding of this. Continue outpatient treatment as follows: -Promethazine 25mg suppository q6 hours as needed. -Scopolamine 1.5mg TD patch to be placed behind ear, change q3 days -Vitamin B6 TID -Unisom nightly Weight loss: Patient reported 30lbs weight loss over 3 weeks. I suspect this will correct when patient becomes euthyroid and with further control of her nausea. Tachycardia: Significant improvement of tachycardia over hospital course. She denies palpitations or shortness of breath today. Initially presented with HR in 160s, currently low 100s. Suspect this will correct when patient becomes euthyroid. Treat with propanolol as discussed above. Dehydration: Resolved with IV fluids. She is tolerating PO. Recommend continued hydration by mouth at home. Nagma: Resolved with IV fluids. Hematuria: Hematuria noted on UA 11/21/2019. Urine culture from [id number] 2019 normal urogenital braden, otherwise no growth. She was asymptomatic for entire hospital course. Treatment was not warranted at this time as there are no signs of infection. - Additional Information Resuscitation Status: Full Code Discharge Diet: Other (Comments) - Small frequent meals. Mobile diet. Discharge Activity: Activity As Tolerated Referrals: [facility] [Provider Group] Prescriptions: Propranolol HCl [Inderal 20 mg Tablet] 20 mg PO Q6 #30 tablet Promethazine HCl [Phenergan 25 mg Supp.rect] 25 mg MO Q4HP PRN #12 supp.rect PRN Reason: Propylthiouracil [Propylthiouracil 50 mg Tablet] 50 mg PO TID #30 tablet Scopolamine 1 each TD Q3DAYS #2 patch.td.3 Home Medications: Promethazine HCl [Phenergan 25 mg Supp.rect] 25 mg MO Q4HP PRN #12 supp.rect 11/24/19 Propranolol HCl [Inderal 20 mg Tablet] 20 mg PO Q6 #30 tablet 11/24/19 Propylthiouracil [Propylthiouracil 50 mg Tablet] 50 mg PO TID #30 tablet 11/24/19 Scopolamine 1 each TD Q3DAYS #2 patch.td.3 11/24/19 History of Present Illiness History of Present Illness: ISAIAH POWER is a 19 year old female who presents to the emergency department with concerns regarding 3-week history of nausea, vomiting, and fatigue with 30lb weight loss. Reports associated palpitations, shortness of breath, heat intolerance, headache, diarrhea and tingling in extremities. She reports on average 7 episodes of emesis a day. LNMP earlier this month, unable to report exact date, with positive urine test since. She has been unable to eat for the past 2 days secondary to frequency of vomiting, which prompted her to seek evaluation in the emergency department today. On evaluation in the emergency department she was found to be tachycardic, otherwise afebrile and hemodynamically stable. Thyroid studies consistent with hyperthyroidism (TSH <0.01, Free T4 5.17, Free T3 14). Serum qualitative hCG was positive with quantitative beta-hCG 160,000. On chemistiries she is hyponatremic (135.1) with non-anion gap metabolic acidosis. Hematuria, ketones, polyuria, and trace amounts of leukocyte esterase on UA. EKG showed sinus tach rate in the 140s. IVF were initiated and was subsequentially reffered to the hospitalist service for further evaluation and treatment. Physical Exam Vital Signs: Temp Pulse Resp BP Pulse Ox 98.4 F 107 H 18 120/66 100 11/24/19 15:39 11/24/19 15:39 11/24/19 15:39 11/24/19 15:39 11/24/19 15:39 Intake & Output 11/23/19 11/24/19 11/25/19 06:59 06:59 06:59 Intake Total 2275 1170 100 Output Total 200 Balance 2275 970 100 Weight 48.1 kg 48.2 kg 48.2 kg General appearance: PRESENT: no acute distress, cooperative, thin Head exam: PRESENT: atraumatic, normocephalic Eye exam: PRESENT: conjunctiva pink, EOMI, PERRLA. ABSENT: scleral icterus Ear exam: PRESENT: normal external ear exam. ABSENT: bleeding, drainage Mouth exam: PRESENT: moist, tongue midline Neck exam: PRESENT: full ROM. ABSENT: lymphadenopathy, tenderness, thyromegaly Respiratory exam: PRESENT: clear to auscultation breanna, symmetrical, unlabored. ABSENT: tachypnea, wheezes Cardiovascular exam: PRESENT: +S1, +S2, tachycardia. ABSENT: diastolic murmur, systolic murmur GI/Abdominal exam: PRESENT: soft. ABSENT: distended, firm, guarding, tenderness Rectal exam: PRESENT: deferred Gentrourinary exam: ABSENT: indwelling catheter Extremities exam: PRESENT: full ROM. ABSENT: clubbing, pedal edema, tenderness Musculoskeletal exam: PRESENT: ambulatory, full ROM. ABSENT: deformity, dislocation Neurological exam: PRESENT: alert, awake, oriented to person, oriented to place, oriented to time, oriented to situation, CN II-XII grossly intact. ABSENT: motor sensory deficit Psychiatric exam: PRESENT: appropriate affect, normal mood Skin exam: PRESENT: dry, intact, warm. ABSENT: erythema Results Laboratory Results: WBC 4.8 10^3/uL (4.0-10.5) 11/22/19 06:14 RBC 4.31 10^6/uL (3.72-5.28) 11/22/19 06:14 Hgb 12.3 g/dL (12.0-15.5) D 11/22/19 06:14 Hct 35.0 % (36.0-47.0) L 11/22/19 06:14 MCV 81 fl (80-97) 11/22/19 06:14 MCH 28.7 pg (27.0-33.4) 11/22/19 06:14 MCHC 35.3 g/dL (32.0-36.0) 11/22/19 06:14 RDW 11.6 % (11.5-14.0) 11/22/19 06:14 Plt Count 210 10^3/uL (150-450) 11/22/19 06:14 Lymph % (Auto) 26.5 % (13-45) 11/22/19 06:14 [place] % (Auto) 8.5 % (3-13) 11/22/19 06:14 Eos % (Auto) 0.6 % (0-6) 11/22/19 06:14 Baso % (Auto) 0.8 % (0-2) 11/22/19 06:14 Absolute Neuts (auto) 3.0 10^3/uL (1.7-8.2) 11/22/19 06:14 Absolute Lymphs (auto) 1.3 10^3/uL (0.5-4.7) 11/22/19 06:14 Absolute Monos (auto) 0.4 10^3/uL (0.1-1.4) 11/22/19 06:14 Absolute Eos (auto) 0.0 10^3/uL (0.0-0.6) 11/22/19 06:14 Absolute Basos (auto) 0.0 10^3/uL (0.0-0.2) 11/22/19 06:14 Seg Neutrophils % 63.6 % (42-78) 11/22/19 06:14 VBG pH 7.28 (7.30-7.42) L 11/21/19 12:12 VBG pCO2 32.6 mmHg (35-63) L 11/21/19 12:12 VBG HCO3 15.1 mmol/L (20-32) L 11/21/19 12:12 VBG Base Excess -10.3 mmol/L 11/21/19 12:12 Sodium 133.8 mmol/L (137-145) L 11/22/19 06:14 Potassium 3.8 mmol/L (3.6-5.0) 11/22/19 06:14 Chloride 106 mmol/L (98-107) 11/22/19 06:14 Carbon Dioxide 16 mmol/L (22-30) L 11/22/19 06:14 Anion Gap 12 (5-19) 11/22/19 06:14 BUN 9 mg/dL (7-20) 11/22/19 06:14 Creatinine 0.38 mg/dL (0.52-1.25) L 11/22/19 06:14 Est GFR ( Amer) > 60 (>60) 11/22/19 06:14 Est GFR (MDRD) Non-Af > 60 (>60) 11/22/19 06:14 Glucose 70 mg/dL (75-110) L 11/22/19 06:14 POC Glucose 96 mg/dL (70-110) 11/21/19 11:17 Calcium 9.4 mg/dL (8.4-10.2) 11/22/19 06:14 Magnesium 1.5 mg/dL (1.6-2.3) L 11/22/19 06:14 Total Bilirubin 1.3 mg/dL (0.2-1.3) 11/21/19 11:19 Direct Bilirubin 0.2 mg/dL (0.0-0.4) 11/21/19 11:19 Neonat Total Bilirubin Not Reportable 11/21/19 11:19 Neonat Direct Bilirubin Not Reportable 11/21/19 11:19 Neonat Indirect Bili Not Reportable 11/21/19 11:19 AST 35 U/L (14-36) 11/21/19 11:19 ALT 49 U/L (<35) H 11/21/19 11:19 Alkaline Phosphatase 77 U/L (38-126) 11/21/19 11:19 Creatine Kinase 35 U/L (30-135) 11/21/19 11:19 Troponin I < 0.012 ng/mL 11/21/19 11:19 Total Protein 6.7 g/dL (6.3-8.2) 11/21/19 11:19 Albumin 3.9 g/dL (3.5-5.0) 11/21/19 11:19 TSH < 0.01 uIU/mL (0.47-4.68) L 11/21/19 11:19 Free T4 5.17 ng/dL (0.78-2.19) H 11/21/19 11:19 Free T3 pg/mL 14.00 pg/mL (2.77-5.27) H 11/21/19 11:19 TSH Immunoglobulin 8.03 IU/L (0.00-0.55) H 11/21/19 18:08 Serum HCG, Qual POSITIVE (NEGATIVE) H 11/21/19 11:19 Beta HCG, Quant 240888.00 mIU/mL (0.0-6.15) H 11/21/19 11:19 Total Beta HCG POSITIVE (NEGATIVE) 11/21/19 11:19 Cortisol AM Sample 22.10 ug/dL (4.46-22.7) 11/22/19 06:14 Urine Color YELLOW 11/22/19 05:00 Urine Appearance SLIGHTLY-CLOUDY 11/22/19 05:00 Urine pH 5.0 (5.0-9.0) 11/22/19 05:00 Ur Specific [place] 1.019 11/22/19 05:00 Urine Protein 30 mg/dL (NEGATIVE) H 11/22/19 05:00 Urine Glucose (UA) NEGATIVE mg/dL (NEGATIVE) 11/22/19 05:00 Urine Ketones 80 mg/dL (NEGATIVE) H 11/22/19 05:00 Urine Blood NEGATIVE (NEGATIVE) 11/22/19 05:00 Urine Nitrite NEGATIVE (NEGATIVE) 11/22/19 05:00 Urine Bilirubin NEGATIVE (NEGATIVE) 11/22/19 05:00 Urine Urobilinogen NEGATIVE mg/dL (<2.0) 11/22/19 05:00 Ur Leukocyte Esterase SMALL (NEGATIVE) H 11/22/19 05:00 Urine WBC (Auto) 21 /HPF 11/22/19 05:00 Urine RBC (Auto) 2 /HPF 11/22/19 05:00 Urine Bacteria (Auto) TRACE /HPF 11/21/19 11:19 Squamous Epi Cells Auto 3 /HPF 11/22/19 05:00 Urine Mucus (Auto) RARE /LPF 11/22/19 05:00 Urine Ascorbic Acid NEGATIVE (NEGATIVE) 11/22/19 05:00 11/21/19 11:19 Troponin I < 0.012 Impressions: Obstetrics Ultrasound 11/21/19 00:00 IMPRESSION: LIVING INTRAUTERINE . EGA 8 weeks 6 days. Trimester of : First trimester - 0 to 13 weeks. Thyroid Ultrasound 11/21/19 00:00 IMPRESSION: Normal size, heterogeneous thyroid with increased vascularity. Possible thyroiditis. Plan Health Concerns: Hyperthyroidism in first trimester of . Weight loss in first trimester of . Plan of Treatment: Stabilize thyroid with appropriate medications resulting symptomatic control. Goals: Follow up with endocrinology for proper monitoring and treatment of hyperthyroidism. Follow up with [facility]. Time Spent: Greater than 30 Minutes Stroke Is this a Stroke Patient?: No Acute Heart Failure Is this a Heart Failure Patient?: No
[2019-11-24 18:57] VITALS: BP 113/66
== END 2019-11-24 19:32 | disposition home or self-care (01) | DRG 833 ==
LOC: ER 10:03 → EH 13:56 → INTOOBSV 13:56 → OBSVTOIN 15:25 → 4S 20:53
PROVIDERS: ADMIT Internal Medicine; ATTEND Hospitalist
DX: O99.281 Endocrine, nutritional and metabolic diseases complicating pregnancy, first trimester (principal); E05.90 Thyrotoxicosis, unspecified without thyrotoxic crisis or storm; O26.11 Low weight gain in pregnancy, first trimester; O21.1 Hyperemesis gravidarum with metabolic disturbance; R31.1 Benign essential microscopic hematuria; R00.0 Tachycardia, unspecified; O99.411 Diseases of the circulatory system complicating pregnancy, first trimester; Z3A.08 8 weeks gestation of pregnancy
CPT/HCPCS: 36415; 76536; 76801; 80048; 80053; 81001; 82533; 82550; 82803; 82962; 83519; 83735; 84439; 84443; 84481; 84484; 84702; 84703; 85025; 87086; 93005; 93010; 93976; 96361; 96374; 99285; J2765; J3475; J3490; J7120

== ENCOUNTER 2020-01-01 16:06 | Emergency (ER) | payer BC, MEDICAID ==
[2020-01-01 16:40] VITALS: BP 116/76
--- NOTE | 2020-01-01 16:41 | ER Document Report ---
ED General - General Chief Complaint: Medication Refill Stated Complaint: MED REFILL Time Seen by Provider: 01/01/20 16:21 Primary Care Provider: JODEE DONOVAN FNP-C [COMMUNITY BASED STAFF] - Follow up as needed TRAVEL OUTSIDE OF THE [place] IN LAST 30 DAYS: No - HPI Notes: Patient is a 19 y/o female who is 14 weeks and presents for a medication refill. Patient states she was seen in the ED on 11/21/2019 where she was found to be and diagnosed with hyperthyroidism. Patient prescribed propranolol and propylthiouracil which she ran out of two weeks ago. She tried to get them refilled by her [facility] but was told they cannot manage it for her. She has an appointment in two days with her primary care. She reports feeling much better than when she came to the ED in October but does reports some palpitations, dyspnea on exertion, nausea and vomiting since she ran out of her medications. She denies any other symptoms. - Related Data Allergies/Adverse Reactions: No Known Allergies Allergy (Verified 11/03/17 11:04) Past Medical History - General Information source: Patient - Social History Smoking Status: Unknown if Ever Smoked Family History: Reviewed & Not Pertinent Renal/ Medical History: Denies: Hx Peritoneal Dialysis Psychiatric Medical History: Reports: Hx Depression Review of Systems - Review of Systems Constitutional: No symptoms reported EENT: No symptoms reported Cardiovascular: See HPI Respiratory: See HPI Gastrointestinal: See HPI Genitourinary: No symptoms reported Female Genitourinary: No symptoms reported Musculoskeletal: No symptoms reported Skin: No symptoms reported Hematologic/Lymphatic: No symptoms reported Neurological/Psychological: No symptoms reported Physical Exam - Vital signs Vitals: Temp Pulse Resp BP Pulse Ox 97.5 F 113 H 16 116/76 100 01/01/20 16:35 01/01/20 16:35 01/01/20 16:35 01/01/20 16:35 01/01/20 16:35 - Notes Notes: PHYSICAL EXAMINATION: GENERAL: Well-appearing, well-nourished and in no acute distress. HEAD: Atraumatic, normocephalic. EYES: sclera anicteric, conjunctiva are normal. ENT: Moist mucous membranes. NECK: Normal range of motion LUNGS: Normal work of breathing HEART: Tachycardia with regular rhythm. 2+ radial pulses bilaterally ABDOMEN: Soft and nontender abdomen. EXTREMITIES: no pitting or edema. No cyanosis. NEUROLOGICAL: No focal neurological deficits. Moves all extremities spontaneously and on command. PSYCH: Normal mood, normal affect. SKIN: Warm, Dry, normal turgor, no rashes or lesions noted. Course - Re-evaluation Re-evalutation: Patient is a 19 y/o female who is 14 weeks and presents for a medica tion refill of propranolol and propylthiouracil. She was seen in the ED on 11/21/2019 and was told she was and diagnosed with hyperthyroidism. She ran out of her medications two weeks ago and has had palpitations, PEREZ, nuase and vomiting but states she has been feeling much better. She has an appointment with her PCP in two days. As patient looks well,reports no additional complaints, and has a appointment with her PCP in less than 48 hours, I feel it is safe to discharge her home without further work. Prescriptions given for propranolol and propylthiouracil. Discussion concerning prompt follow up with her PCP and taking her medications as prescribed. Return precautions given. patient understands and is in agreement with the plan. - Vital Signs Vital signs: Temp Pulse Resp BP Pulse Ox 97.5 F 113 H 16 116/76 100 01/01/20 16:35 01/01/20 16:35 01/01/20 16:35 01/01/20 16:35 01/01/20 16:35 Discharge - Discharge Clinical Impression: Medication refill, Hyperthyroidism complicating in first trimester Qualifiers: Weeks of gestation: 14 weeks Qualified Code(s): Z3A.14 - 14 weeks gestation of Condition: Stable Disposition: HOME, SELF-CARE Additional Instructions: Take Propylthiouracil and Propranolol as prescribed. Follow up with your primary care provider at your scheduled appointment on 01/03/2020. Please return if your symptoms worsen or if you begin to have palpitations, severe nervousness, chest pain, shortness of breath, worsening weakness or lightheadedness. Prescriptions: Propranolol HCl [Inderal 20 mg Tablet] 20 mg PO Q6 7 Days #28 tablet Propylthiouracil [Propylthiouracil 50 Mg Tablet] 50 mg PO TID 7 Days #21 tablet Referrals: JODEE DONOVAN, PO[facility] [COMMUNITY BASED STAFF] - Follow up as needed
== END 2020-01-01 16:43 | disposition home or self-care (01) ==
LOC: ER 16:06
DX: Z76.0 Encounter for issue of repeat prescription (principal); O99.282 Endocrine, nutritional and metabolic diseases complicating pregnancy, second trimester; E05.90 Thyrotoxicosis, unspecified without thyrotoxic crisis or storm; Z3A.14 14 weeks gestation of pregnancy
CPT/HCPCS: 99283

== ENCOUNTER 2020-01-13 21:42 | Emergency (ER) | payer MEDICAID ==
[2020-01-14] MEDS ORDERED: ACETAMINOPHEN 325 MG TABLET PO ONE (01:06)
--- NOTE | 2020-01-14 01:08 | ER Document Report ---
ED Medical Screen (RME) - General Chief Complaint: Abdominal Pain Stated Complaint: ABDOMINAL PAIN +16WEEKS PREG Time Seen by Provider: 01/14/20 01:04 Mode of Arrival: Ambulatory Information source: Patient Notes: HPI; 21-year-old female who states she is 16 weeks 2 para 1 presents to the emergency room with sharp cramping pelvic pain that started this evening around 7 PM. States she cannot get comfortable. Denies nausea, vomiting, no fevers. Does complain of dysuria. Did not take any medications for symptoms prior to arrival. PE: Oriented x3. Lungs: Clear to auscultation without rales, rhonchi, wheezes. Heart: Tachycardic without murmurs, rubs, gallops. I have greeted and performed a rapid initial assessment of this patient. A comprehensive ED assessment and evaluation of the patient, analysis of test results and completion of the medical decision making process will be conducted by additional ED providers. I have specifically instructed the patient or family members with the patient to immediately return to any nursing staff should anything change in the patient's condition or with their chief complaint. TRAVEL OUTSIDE OF THE [place] IN LAST 30 DAYS: No - Related Data Allergies/Adverse Reactions: No Known Allergies Allergy (Verified 01/14/20 01:04) Past Medical History Renal/ Medical History: Denies: Hx Peritoneal Dialysis Psychiatric Medical History: Reports: Hx Depression Physical Exam - Vital signs Vitals: Temp Pulse Resp BP Pulse Ox 98.1 F 110 H 24 H 107/56 L 100 01/13/20 22:09 01/13/20 22:09 01/13/20 22:09 01/13/20 22:09 01/13/20 22:09 Course - Vital Signs Vital signs: Temp Pulse Resp BP Pulse Ox 98.1 F 110 H 24 H 107/56 L 100 01/13/20 22:09 01/13/20 22:09 01/13/20 22:09 01/13/20 22:09 01/13/20 22:09
[2020-01-14 02:20] LABS: ABSOLUTE EOSINOPHILS # (AUTO) 0.1 10^3/uL (0.0-0.6); ABSOLUTE LYMPHOCYTES (AUTO) 2.6 10^3/uL (0.5-4.7); ABSOLUTE MONOCYTES (AUTO) 0.6 10^3/uL (0.1-1.4); ABSOLUTE NEUT (AUTO) 3.9 10^3/uL (1.7-8.2); BASOPHILS % (AUTO) 0.4 % (0-2); EOSINOPHILS % (AUTO) 1.5 % (0-6); HEMATOCRIT 37.4 % (36.0-47.0); HEMOGLOBIN 12.6 g/dL (12.0-15.5); LYMPHOCYTES % (AUTO) 35.9 % (13-45); MEAN CORPUSCULAR HEMOGLOBIN 28.9 pg (27.0-33.4); MEAN CORPUSCULAR HGB CONC 33.8 g/dL (32.0-36.0); MEAN CORPUSCULAR VOLUME 86 fl (80-97); MONOCYTES % (AUTO) 7.8 % (3-13); PLATELET COUNT 220 10^3/uL (150-450); RED BLOOD COUNT 4.36 10^6/uL (3.72-5.28); RED CELL DISTRIBUTION WIDTH 15.5 % (11.5-14.0); SEGMENTED NEUTROPHILS % (AUTO) 54.4 % (42-78); TOTAL CELLS COUNTED % (AUTO) 100 %; WHITE BLOOD COUNT 7.1 10^3/uL (4.0-10.5)
--- NOTE | 2020-01-14 02:31 | RADIOLOGY REPORT (SQ) ---
Ultrasound OB limited on 01/14/2020 at 1:36 AM CLINICAL INDICATION: , generalized abdominal pain COMPARISON: 11/21/2019 FINDINGS: Multiple sonographic images are obtained throughout the pelvis by transabdominal approach only, both transverse and sagittal images are obtained. Single living intrauterine fetus is noted currently in breech presentation. Placenta is posterior in location with no evidence of placenta previa or abruption. Bilateral maternal adnexa were imaged and appear unremarkable. Neither ovary is visualized. Normal amount of amniotic fluid is noted with amniotic fluid index of 11.8 cm. Positive cardiac activity is noted with a heart rate of 137 bpm. Cervical length measures approximately 3.5 cm and the cervix is closed. Estimated gestational age by measurements is an approximate 16 week two day gestation. There has been appropriate growth when compared with the prior study. Estimated weight is 152 g +/- 22 g. No gross abnormality is noted on limited imaging. IMPRESSION: Single living approximate 16 week two day intrauterine .
[2020-01-14 02:35] LABS: ALBUMIN 3.5 g/dL (3.5-5.0); ALKALINE PHOSPHATASE 76 U/L (38-126); ANION GAP 10 (5-19); ASPARTATE AMINO TRANSFERASE 34 U/L (14-36); BILIRUBIN,TOTAL 0.9 mg/dL (0.2-1.3); BLOOD UREA NITROGEN 12 mg/dL (7-20); CALCIUM 9.5 mg/dL (8.4-10.2); CARBON DIOXIDE 23 mmol/L (22-30); CHLORIDE 103 mmol/L (98-107); GLUCOSE 85 mg/dL (75-110); POTASSIUM 4.5 mmol/L (3.6-5.0); TOTAL PROTEIN 6.1 g/dL (6.3-8.2)
--- NOTE | 2020-01-14 07:07 | ER Document Report ---
Entered by ROWAN MCKEON SCRIBE 01/14/20 0659 Acting as scribe for:MAGDALENA CASTELLANOS MD ED General - General Chief Complaint: Abdominal Cramping Stated Complaint: ABDOMINAL PAIN +16WEEKS PREG Time Seen by Provider: 01/14/20 01:04 Primary Care Provider: FABRIZIO CARRASQUILLO MD [Primary Care Provider] - Follow up as needed Mode of Arrival: Ambulatory Information source: Patient Notes: This 19 year old female patient presents to the emergency department today with complaints of abdominal cramping last night that has now resolved in the ED. Patient states she is , and currently 16 weeks . Patient states she follows up at [facility] for OB with Dr. Carrasquillo. Denies vaginal bleeding, fever, or N/V. Patient states she was diagnosed with hyperthyroidism in early November and is compliant with her medications. TRAVEL OUTSIDE OF THE [place] IN LAST 30 DAYS: No - Related Data Allergies/Adverse Reactions: No Known Allergies Allergy (Verified 01/14/20 01:04) Past Medical History - General Information source: Patient - Social History Smoking Status: Never Smoker Cigarette use (# per day): No Frequency of alcohol use: None Drug Abuse: None Family History: Reviewed & Not Pertinent Patient has homicidal ideation: No Endocrine Medical History: Reports: Hx Hyperthyroidism Renal/ Medical History: Denies: Hx Peritoneal Dialysis Psychiatric Medical History: Reports: Hx Depression Review of Systems - Review of Systems Constitutional: See HPI. denies: Fever EENT: No symptoms reported Cardiovascular: No symptoms reported Respiratory: No symptoms reported Gastrointestinal: See HPI, Abdominal pain - cramps. denies: Nausea, Vomiting Genitourinary: No symptoms reported Female Genitourinary: See HPI, - 16 weeks. denies: Vaginal bleeding Musculoskeletal: No symptoms reported Skin: No symptoms reported Hematologic/Lymphatic: No symptoms reported Neurological/Psychological: No symptoms reported -: Yes All other systems reviewed and negative Physical Exam - Vital signs Vitals: Temp Pulse Resp BP Pulse Ox 98.1 F 110 H 24 H 107/56 L 100 01/13/20 22:09 01/13/20 22:09 01/13/20 22:09 01/13/20 22:09 01/13/20 22:09 - General General appearance: Appears well, Alert - HEENT Head: Normocephalic, Atraumatic Eyes: Normal Pupils: PERRL - Respiratory Respiratory status: No respiratory distress Chest status: Nontender Breath sounds: Normal Chest palpation: Normal - Cardiovascular Rhythm: Regular Heart sounds: Normal auscultation Murmur: No - Abdominal Inspection: Gravid female Distension: No distension Bowel sounds: Normal Tenderness: Nontender - Extremities General upper extremity: Normal inspection, Normal ROM General lower extremity: Normal inspection, Normal ROM. No: Edema - Neurological Neuro grossly intact: Yes Cognition: Normal Orientation: AAOx4 [place] Coma Scale Eye Opening: Spontaneous [place] Coma Scale Verbal: Oriented [place] Coma Scale Motor: Obeys Commands [place] Coma Scale Total: 15 Speech: Normal Motor strength normal: LUE, RUE, LLE, RLE Sensory: Normal - Psychological Associated symptoms: Normal affect, Normal mood - Skin Skin Temperature: Warm Skin Moisture: Dry Skin Color: Normal Course - Re-evaluation Re-evalutation: 01/14/20 07:04 Patient resting comfortably not showing any signs of distress no abdominal cramping at this time. - Vital Signs Vital signs: Temp Pulse Resp BP Pulse Ox 98.0 F 99 16 103/80 100 01/14/20 02:54 01/14/20 02:54 01/14/20 02:54 01/14/20 02:54 01/14/20 02:54 - Laboratory Result Diagrams: 01/14/20 02:00 01/14/20 02:00 Laboratory results interpreted by me: 01/14/20 01/14/20 02:00 02:00 RDW 15.5 H Sodium 135.6 L Creatinine 0.45 L Total Protein 6.1 L 01/14/20 07:05 2 is essentially unremarkable. 01/14/20 07:05 01/14/20 02:00 01/14/20 02:00 MCV 86 fl (80-97) 01/14/20 02:00 MCH 28.9 pg (27.0-33.4) 01/14/20 02:00 MCHC 33.8 g/dL (32.0-36.0) 01/14/20 02:00 RDW 15.5 % (11.5-14.0) H 01/14/20 02:00 Seg Neutrophils % 54.4 % (42-78) 01/14/20 02:00 Chloride 103 mmol/L (98-107) 01/14/20 02:00 Carbon Dioxide 23 mmol/L (22-30) 01/14/20 02:00 Anion Gap 10 (5-19) 01/14/20 02:00 Est GFR ( Amer) > 60 (>60) 01/14/20 02:00 Glucose 85 mg/dL (75-110) 01/14/20 02:00 Calcium 9.5 mg/dL (8.4-10.2) 01/14/20 02:00 Total Bilirubin 0.9 mg/dL (0.2-1.3) 01/14/20 02:00 AST 34 U/L (14-36) 01/14/20 02:00 Alkaline Phosphatase 76 U/L (38-126) 01/14/20 02:00 Total Protein 6.1 g/dL (6.3-8.2) L 01/14/20 02:00 Albumin 3.5 g/dL (3.5-5.0) 01/14/20 02:00 - Diagnostic Test Radiology reviewed: Image reviewed, Reports reviewed Radiology results interpreted by me: 01/14/20 07:05 Obstetrics Ultrasound 01/14/20 01:06 IMPRESSION: Single living approximate 16 week two day intrauterine . Ultrasound of pelvic shows single live intrauterine 16 weeks 2 days without any complications. Discharge - Discharge Clinical Impression: Second trimester , Hyperthyroidism Condition: Stable Disposition: HOME, SELF-CARE Additional Instructions: You are . care is best started as early in as possible. If you're unsure about continuing this , you should discuss this with your physician or with broker assistant at [facility]. You should take only medications approved by your physician. Acetaminophen can safely be taken for minor pains. As a rule, medication for chronic conditions such as asthma or seizures can safely be continued. You should discuss with the physician every medicine you take. Any regular exercise program can be continued. Talk to your physician, however, before engaging in competitive or demanding sports. Alcohol, smoking, and "street drugs" are dangerous to your baby. Cocaine is especially dangerous. Don't use any illicit drugs! Referrals: FABRIZIO CARRASQUILLO MD [Primary Care Provider] - Follow up as needed I personally performed the services described in the documentation, reviewed and edited the documentation which was dictated to the scribe in my presence, and it accurately records my words and actions.
[2020-01-14 07:30] VITALS: BP 92/66
== END 2020-01-14 07:35 | disposition home or self-care (01) ==
LOC: ER 21:42
DX: O26.92 Pregnancy related conditions, unspecified, second trimester (principal); R10.84 Generalized abdominal pain; O99.282 Endocrine, nutritional and metabolic diseases complicating pregnancy, second trimester; E05.90 Thyrotoxicosis, unspecified without thyrotoxic crisis or storm; Z3A.16 16 weeks gestation of pregnancy
CPT/HCPCS: 36415; 76815; 80053; 85025; 99284